=== PATIENT | male | born 1960 | race Caucasian/White ===

== ENCOUNTER 2020-12-25 10:08 | Emergency (ER) | payer SELFPAY ==
[2020-12-25 10:34] LABS: Absolute Lymphocytes (CBC) 1.8 K/uL (0.7-4.9); Basophils % 0.5 % (0-1.3); Hematocrit 46.9 % (39.6-49.0); Lymphocytes % 30.6 % (15.3-44.8); MPV 7.6 fL (7.6-11.3); RBC Red Blood Cell Count 5.23 M/uL (4.33-5.43)
--- NOTE | 2020-12-25 10:39 | RAD REPORT ---
EXAM DESCRIPTION: CT - Ct Stroke Brain Wo Cont - 12/25/2020 10:27 am CLINICAL HISTORY: MENTAL STATUS CHANGE COMPARISON: <Comparisons> TECHNIQUE: Axial 5 millimeter thick images of the head were obtained without IV contrast. All CT scans are performed using dose optimization technique as appropriate and may include automated exposure control or mA/KV adjustment according to patient size. FINDINGS: No intracranial hemorrhage, mass, or cerebral edema. No acute infarction identifiable. No extra-axial fluid collections. Miller matter-white matter differentiation is preserved. Mastoid air cells are clear. No hernia Findings telephoned to Giovany in emergency department 10:35 a.m.. IMPRESSION: No CT evidence of acute intracranial process.
[2020-12-25 10:40] LABS: Protime INR 1.09
[2020-12-25 10:53] LABS: ALT/SGPT 29 U/L (12-78); AST/SGOT 24 U/L (15-37); Albumin 4.1 g/dL (3.4-5.0); Alkaline Phosphatase 63 U/L (45-117); BUN Blood Urea Nitrogen 19 mg/dL (7-18); Bicarbonate 25 mmol/L (21-32); Bilirubin Direct 0.1 mg/dL (0-0.2); Bilirubin Total 0.5 mg/dL (0.2-1.0); Glucose Level 140 mg/dL (74-106); Magnesium 2.3 mg/dL (1.8-2.4); NT PRO-BNP 92 pg/mL (<125); Potassium 3.9 mmol/L (3.5-5.1); Protein, Total 7.7 g/dL (6.4-8.2); Sodium Level 138 mmol/L (136-145); Troponin (Emerg Dept Use Only) < 0.02 ng/mL (0.0-0.045)
--- NOTE | 2020-12-25 11:20 | RAD REPORT ---
EXAM DESCRIPTION: RAD - Chest Single View - 12/25/2020 11:04 am CLINICAL HISTORY: COUGH COMPARISON: None TECHNIQUE: AP portable chest image was obtained 12/25/2020 11:04 am . FINDINGS: Lungs are clear. Heart and vasculature are normal. No measurable pleural effusion and no p neumothorax. No acute bony abnormality seen. No acute aortic findings suspected. IMPRESSION: No acute cardiopulmonary process.
--- NOTE | 2020-12-25 11:21 | ER ---
Nurse's Notes [facility] Name: Onel Escalera Age: 60 yrs Sex: Male : 1960 Arrival Date: 12/25/2020 Time: 10:13 Bed 27 Private MD: Diagnosis: Altered mental status, unspecified;Other seizures-history of;Acute kidney failure, unspecified-volume depletion Presentation: 12/25 10:12 Chief complaint: EMS states: Patient's coworkers reported that he was at work when he aj1 stopped suddenly and appeared dazed. He almost passed out, and started to fall but a coworker caught him and he never lost consciousness. After that he was acting confused so they called EMS. Patient is oriented x1, does not know where he is or what happened. does not remember when questions are answered and asks the same questions repeatedly. Code stroke called. 10:12 Coronavirus screen: Client denies travel out of the [place] in the last 14 days. Ebola aj1 Screen: Patient denies travel to an Ebola-affected area in the 21 days before illness onset. Initial Sepsis Screen: Does the patient meet any 2 criteria? No. Patient's initial sepsis screen is negative. Does the patient have a suspected source of infection? No. Patient's initial sepsis screen is negative. Risk Assessment: Do you want to hurt yourself or someone else? Patient reports no desire to harm self or others. Onset of symptoms was December 25, 2020. 10:12 Method Of Arrival: EMS: [facility] aj1 10:12 Acuity: LUZ ELENA 2 aj1 Triage Assessment: 10:12 General: Appears in no apparent distress. comfortable, Behavior is calm, cooperative, aj1 inappropriate for age. Pain: Denies pain. Neuro: Level of Consciousness is awake, alert, obeys commands, Oriented to person, Recreation Supervisor are equal bilaterally Moves all extremities. Full function Gait is steady, Speech is normal, Facial symmetry appears normal, Pupils are PERRLA. Historical: - Allergies: 11:49 No Known Allergies; aj1 - Home Meds: 11:49 None [Active]; aj1 - PMHx: 11:49 Seizure; Hypoglycemia; aj1 - PSHx: 11:08 Unable to Obtain; aj1 - Immunization history:: Adult Immunizations unknown. - Social history:: Smoking status: unknown. - Family history:: not pertinent. Screenin:15 Abuse screen: Denies threats or abuse. Denies injuries from another. Nutritional aj1 screening: No deficits noted. Tuberculosis screening: No symptoms or risk factors identified. 16:53 Fall Risk No fall in past 12 months (0 pts). Secondary diagnosis (15 points) confused. aj1 IV access (20 points). Ambulatory Aid- None/Bed Rest/Nurse Assist (0 pts). Gait- Normal/Bed Rest/Wheelchair (0 pts) Mental Status- Overestimates/Forgets Limitations (15 pts.). Total Heaton Fall Scale indicates High Risk Score (45 or more points). Placed Close to Nursing Station Frequent Obs/Assessments Occuring Family Present and informed to notify staff if the need to leave the bedside. Assessment: 10:15 General: Appears in no apparent distress. comfortable, Behavior is calm, cooperative, aj1 appropriate for age. Pain: Denies pain. Neuro: Level of Consciousness is awake, alert, obeys commands, Oriented to person, Recreation Supervisor are equal bilaterally Moves all extremities. Full function Gait is steady, Speech is normal, Facial symmetry appears normal, Pupils are PERRLA. Cardiovascular: Heart tones S1 S2 present Patient's skin is warm and dry. Rhythm is sinus rhythm. Respiratory: Airway is patent Respiratory effort is even, unlabored, Respiratory pattern is regular, symmetrical, Breath sounds are clear bilaterally. GI: No signs and/or symptoms were reported involving the gastrointestinal system. : No signs and/or symptoms were reported regarding the genitourinary system. EENT: No signs and/or symptoms were reported regarding the EENT system. Derm: No signs and/or symptoms reported regarding the dermatologic system. Skin is pink, warm \T\ dry. normal. Musculoskeletal: No signs and/or symptoms reported regarding the musculoskeletal system. Circulation, motion, and sensation intact. 11:15 Reassessment: Patient appears in no apparent distress at this time. No changes from aj1 previously documented assessment. Patient and/or family updated on plan of care and expected duration. Pain level reassessed. 11:37 Reassessment: Awaiting Keppra and Folic Acid from pharmacy at this time. . aa5 12:15 Reassessment: Patient and/or family updated on plan of care and expected duration. Pain aj1 level reassessed. General: Appears in no apparent distress. comfortable, Behavior is calm, cooperative, appropriate for age. Pain: Denies pain. Neuro: Level of Consciousness is awake, alert, obeys commands, Oriented to person, Speech is normal, Facial symmetry appears normal. Cardiovascular: Patient's skin is warm and dry. Rhythm is sinus rhythm. Respiratory: Airway is patent Respiratory effort is even, unlabored, Respiratory pattern is regular, symmetrical. Derm: Skin is pink, warm \T\ dry. normal. Musculoskeletal: No signs and/or symptoms reported regarding the musculoskeletal system. Circulation, motion, and sensation intact. 13:14 Reassessment: Patient appears in no apparent distress at this time. No changes from aj1 previously documented assessment. Patient and/or family updated on plan of care and expected duration. Pain level reassessed. 14:29 Reassessment: Patient and/or family updated on plan of care and expected duration. Pain aj1 level reassessed. General: Appears in no apparent distress. comfortable. 14:30 Pain: Denies pain. Neuro: Level of Consciousness is awake, alert, obeys commands, aj1 Oriented to person, Speech is normal, Facial symmetry appears normal. Cardiovascular: Patient's skin is warm and dry. Rhythm is sinus rhythm. Respiratory: Airway is patent Respiratory effort is even, unlabored, Respiratory pattern is regular, symmetrical. Respiratory: Airway is patent Respiratory effort is even, unlabored, Respiratory pattern is regular, symmetrical. Derm: Skin is pink, warm \T\ dry. normal. Musculoskeletal: Circulation, motion, and sensation intact. 14:40 Reassessment: Report given to ETHAN Ames at [facility]. aj1 15:38 Reassessment: Patient appears in no apparent distress at this time. No changes from aj1 previously documented assessment. Patient and/or family updated on plan of care and expected duration. Pain level reassessed. 16:40 Reassessment: Patient appears in no apparent distress at this time. No changes from aj1 previously documented assessment. Patient and/or family updated on plan of care and expected duration. Pain level reassessed. Vital Signs: 10:12 BP 132 / 78; Pulse 82; Resp 18; Temp 97.8; Pulse Ox 99% ; Pain 0/10; aj1 11:15 BP 118 / 81; Pulse 65; Resp 18; Pulse Ox 99% on R/A; aj1 12:15 BP 133 / 83; Pulse 63; Resp 18; Pulse Ox 100% on R/A; aj1 13:14 BP 130 / 89; Pulse 71; Resp 18; Pulse Ox 97% on R/A; aj1 14:31 BP 121 / 82; Pulse 73; Resp 18; Pulse Ox 100% on R/A; aj1 15:39 BP 118 / 87; Pulse 60; Resp 16; Pulse Ox 98% on R/A; aj1 16:53 BP 122 / 88; Pulse 72; Resp 18; Pulse Ox 97% ; aj1 NIH Stroke Scale Scores: 11:08 NIHSS Score: 0 [facility] ED Course: 10:12 Arm band placed on. aj1 10:13 Patient arrived in ED. eb 10:13 Keagan Rothman MD is Attending Physician. melly 10:15 No provider procedures requiring assistance completed. aj1 10:15 Patient has correct armband on for positive identification. Bed in low position. Call aj1 light in reach. Side rails up X2. monitor tech on. Pulse ox on. NIBP on. 10:18 Initial lab(s) drawn, by me, sent to lab. Inserted saline lock: 18 gauge in right aa5 antecubital area, using aseptic technique. Blood collected. 10:27 CT Stroke Brain w/o Contrast In Process Unspecified. EDMS 11:02 Radha Limon, RN is Primary Nurse. aj1 11:04 XRAY Chest (1 view) In Process Unspecified. EDMS 11:08 Triage completed. aj1 11:19 Marck French DO is Hospitalizing Provider. melly 12:[address] Rothman with Nisha Montiel from the [facility] eb Center. 12:32 CT Neck Angio In Process Unspecified. EDMS 12:32 CT Head Angio In Process Unspecified. EDMS 12:[address] Franco the neurologist decontaminator for [facility] with Dr. Rothman for eb patient transfer consultation. 12:[address] Carey the hospitalist decontaminator for [facility] with Dr. Rothman for eb patient transfer consultation. 13:29 administrative approval given by Nisha Montiel/ patient has been accepted to [facility] rm 2209/ Dr. Daryl Carey has accepted the patient in transfer/ Report to be called to [phone]. 16:53 Patient transferred, IV remains in place. aj1 Administered Medications: 11:36 Drug: NS 0.9% 1000 ml Route: IV; Rate: 1 bolus; Site: right antecubital; aa5 11:36 Drug: Aspirin Chewable Tablet 324 mg Route: PO; aa5 12:45 Drug: Keppra (levETIRAcetam) 1000 mg Route: IV; Rate: per protocol; Site: right aj1 antecubital; 12:45 Drug: Ativan (LORazepam) 1 mg Route: IVP; Site: right antecubital; aj1 Outcome: 11:21 Decision to Hospitalize by Provider. melly 12:26 ER care complete, transfer ordered by MD. melly 16:54 Transferred by ground EMS aj1 16:54 Condition: stable 16:54 Discharge instructions given to patient, family, Instructed on the need for transfer, Demonstrated understanding of instructions. 16:54 Patient left the ED. aj1 NIH Stroke Scale - NIH Stroke Score Date: 12/25/2020 Time: 11:08 Total Score = 0 1a. Level of Consciousness (LOC) - 0(Alert) 1b. Level of Consciousness (LOC) (Month \T\ Age) - 0(Both) 1c. LOC Commands (Open \T\ Closes Eyes/Customer Project Manager) - 0(Both) 2. Best Gaze (Lateral Gaze Paresis) - 0(Normal) 3. Visual Field Loss - 0(No visual loss) 4. Facial Palsy - 0(Normal) 5a. Left Arm: Motor (10-second hold) - 0(No drift) 5b. Right Arm: Motor (10-second hold) - 0(No drift) 6a. Left Leg: Motor (5-second hold - always test supine) - 0(No drift) 6b. Right Leg: Motor (5-second hold - always test supine) - 0(No drift) 7. Limb Ataxia (finger/nose \T\ heel/sandoval - test with eyes open) - 0(Absent) 8. Sensory Loss (pinprick arms/legs/face) - 0(Normal) 9. Best Language: Aphasia (description/naming/reading) - 0(No aphasia) 10. Dysarthria (speech clarity - read or repeat words) - 0(Normal) 11. Extinction and Inattention (visual/tactile/auditory/spatial/personal) - 0(No abnormality) Initials: melly Signatures: Dispatcher [employer] EDRadha Canales RN RN aj1 Keagan Rothman MD MD cha Calderon, Audri, RN RN aa5 Nisha Mejia Corrections: (The following items were deleted from the chart) 11:49 11:08 Allergies: Unable to obtain; aj1 aj1 11:49 11:08 Home Meds: Unable to obtain; aj1 aj1 11:49 11:08 PMHx: Unable to Obtain; aj1 aj1 12:57 12:52 connected the hospitalist decontaminator for [facility] with Dr. Stephan gonzalez for patient transfer consultation, eb 13:13 13:12 Reassessment: Patient and/or family updated on plan of care and expected aj1 duration. Pain level reassessed. aj1 13:13 13:12 General: Appears in no apparent distress. comfortable, Behavior is calm, aj1 cooperative, appropriate for age, aj1 13:13 13:12 Pain: Denies pain. aj1 aj1 13:13 13:12 Neuro: Level of Consciousness is awake, alert, obeys commands, Oriented aj1 to person, Speech is normal, Facial symmetry appears normal, aj1 13:13 13:12 Cardiovascular: Patient's skin is warm and dry. Rhythm is sinus rhythm aj1aj1 13:13 13:12 Respiratory: Airway is patent Respiratory effort is even, unlabored, aj1 Respiratory pattern is regular, symmetrical, aj1 13:13 13:12 Derm: Skin is pink, warm \T\ dry. normal, aj1 aj1 13:13 13:12 Musculoskeletal: No signs and/or symptoms reported regarding the aj1 musculoskeletal system. Circulation, motion, and sensation intact. aj1 14:30 11:15 Reassessment: Patient appears in no apparent distress at this time. No aj1 changes from previously documented assessment. Patient and/or family updated on plan of care and expected duration. Pain level reassessed. Patient is alert, oriented x 3, equal unlabored respirations, skin warm/dry/pink. aj1 14:30 13:14 Reassessment: Patient appears in no apparent distress at this time. No aj1 changes from previously documented assessment. Patient and/or family updated on plan of care and expected duration. Pain level reassessed. Patient is alert, oriented x 3, equal unlabored respirations, skin warm/dry/pink. aj1 14:31 14:29 Reassessment: Patient and/or family updated on plan of care and expected aj1 duration. Pain level reassessed. aj1
--- NOTE | 2020-12-25 11:21 | EDPHYS ---
Physician Documentation [facility] Name: Onel Escalera Age: 60 yrs Sex: Male : 1960 Arrival Date: 12/25/2020 Time: 10:13 Bed 27 Private MD: ED Physician Keagan Rothman HPI: 12/25 11:04 This 60 yrs old Male presents to ER via Unassigned with complaints of Altered melly Mental Status, Near Syncope. 11:04 The patient presents with confusion. Onset: The symptoms/episode began/occurred just melly prior to arrival. Possible causes: CVA or TIA, drug use, alcohol, head injury, low blood sugar, seizure. Associated signs and symptoms: The patient has no apparent associated signs or symptoms. Current symptoms: In the emergency department the patient's symptoms have improved, moderately. Patient's baseline: Neuro: alert and fully oriented. The patient has not experienced similar symptoms in the past. Historical: - Allergies: 11:49 No Known Allergies; aj1 - Home Meds: 11:49 None [Active]; aj1 - PMHx: 11:49 Seizure; Hypoglycemia; aj1 - PSHx: 11:08 Unable to Obtain; aj1 - Immunization history:: Adult Immunizations unknown. - Social history:: Smoking status: unknown. - Family history:: not pertinent. ROS: 11:08 Constitutional: Negative for fever, chills, and weight loss, Eyes: Negative for injury, melly pain, redness, and discharge, ENT: Negative for injury, pain, and discharge, Neck: Negative for injury, pain, and swelling, Cardiovascular: Negative for chest pain, palpitations, and edema, Respiratory: Negative for shortness of breath, cough, wheezing, and pleuritic chest pain, Abdomen/GI: Negative for abdominal pain, nausea, vomiting, diarrhea, and constipation, Back: Negative for injury and pain, : Negative for injury, bleeding, discharge, and swelling, MS/Extremity: Negative for injury and deformity, Skin: Negative for injury, rash, and discoloration, Psych: Negative for depression, anxiety, suicide ideation, homicidal ideation, and hallucinations, Allergy/Immunology: Negative for hives, rash, and allergies, Endocrine: Negative for neck swelling, polydipsia, polyuria, polyphagia, and marked weight changes, Hematologic/Lymphatic: Negative for swollen nodes, abnormal bleeding, and unusual bruising. 11:08 Neuro: Positive for altered mental status. Exam: 11:08 Constitutional: This is a well developed, well nourished patient who is awake, alert, melly and in no acute distress. Head/Face: Normocephalic, atraumatic. Eyes: Pupils equal round and reactive to light, extra-ocular motions intact. Lids and lashes normal. Conjunctiva and sclera are non-icteric and not injected. Cornea within normal limits. Periorbital areas with no swelling, redness, or edema. ENT: Nares patent. No nasal discharge, no septal abnormalities noted. Tympanic membranes are normal and external auditory canals are clear. Oropharynx with no redness, swelling, or masses, exudates, or evidence of obstruction, uvula midline. Mucous membranes moist. Neck: Trachea midline, no thyromegaly or masses palpated, and no cervical lymphadenopathy. Supple, full range of motion without nuchal rigidity, or vertebral point tenderness. No Meningismus. Chest/axilla: Normal chest wall appearance and motion. Nontender with no deformity. No lesions are appreciated. Cardiovascular: Regular rate and rhythm with a normal S1 and S2. No gallops, murmurs, or rubs. Normal PMI, no JVD. No pulse deficits. Respiratory: Lungs have equal breath sounds bilaterally, clear to auscultation and percussion. No rales, rhonchi or wheezes noted. No increased work of breathing, no retractions or nasal flaring. Abdomen/GI: Soft, non-tender, with normal bowel sounds. No distension or tympany. No guarding or rebound. No evidence of tenderness throughout. Back: No spinal tenderness. No costovertebral tenderness. Full range of motion. Skin: Warm, dry with normal turgor. Normal color with no rashes, no lesions, and no evidence of cellulitis. MS/ Extremity: Pulses equal, no cyanosis. Neurovascular intact. Full, normal range of motion. Psych: Awake, alert, with orientation to person, place and time. Behavior, mood, and affect are within normal limits. 11:08 Neuro: Orientation: to person, Not oriented to place, time, situation, Mentation: confused, Memory: immediate memory is impaired, remote memory is impaired, recent memory is impaired, Cranial nerves: grossly normal, is grossly normal based on the patient's age, no acute changes, Cerebellar function: is grossly normal, is grossly normal based on the patient's age, no acute changes, Motor: is normal, is grossly normal based on the patient's age, no acute changes, moves all fours, strength is normal, Sensation: is normal, no obvious gross deficits, appropriate no acute changes, Gait: is steady, appropriate for age, Deep tendon reflexes are 2+ (normal) in the bilateral brachioradialis, bicep, tricep and patellar and Achilles tendons, Babinski testing is normal, seizure activity, is not displayed by the patient. 11:12 ECG was reviewed by the Attending Physician. melly Vital Signs: 10:12 BP 132 / 78; Pulse 82; Resp 18; Temp 97.8; Pulse Ox 99% ; Pain 0/10; aj1 11:15 BP 118 / 81; Pulse 65; Resp 18; Pulse Ox 99% on R/A; aj1 12:15 BP 133 / 83; Pulse 63; Resp 18; Pulse Ox 100% on R/A; aj1 13:14 BP 130 / 89; Pulse 71; Resp 18; Pulse Ox 97% on R/A; aj1 14:31 BP 121 / 82; Pulse 73; Resp 18; Pulse Ox 100% on R/A; aj1 15:39 BP 118 / 87; Pulse 60; Resp 16; Pulse Ox 98% on R/A; aj1 16:53 BP 122 / 88; Pulse 72; Resp 18; Pulse Ox 97% ; aj1 NIH Stroke Scale Scores: 11:08 NIHSS Score: 0 melly MDM: 10:13 Patient medically screened. melly 11:11 Differential Diagnosis: CVA, electrolyte abnormality, alcohol intoxication, melly hypoglycemia, intracranial bleed, seizure, volume depletion. Data reviewed: vital signs, nurses notes, EMS record, lab test result(s), EKG, radiologic studies, CT scan, plain films. Data interpreted: monitoring analyst: rate is 82 beats/min, rhythm is regular, Pulse oximetry: on room air is 99 %. Test interpretation: by ED physician or midlevel provider: ECG, plain radiologic studies. Counseling: I had a detailed discussion with the patient and/or guardian regarding: the historical points, exam findings, and any diagnostic results supporting the discharge/admit diagnosis, lab results, radiology results, the need for further work-up and treatment in the hospital. 12/25 10:15 Order name: Basic Metabolic Panel [facility] 12/25 10:15 Order name: CBC with Diff [facility] 12/25 10:15 Order name: LFT's [facility] 12/25 10:15 Order name: Magnesium [facility] 12/25 10:15 Order name: NT PRO-BNP; Complete Time: 12:19 [facility] 12/25 10:15 Order name: PT-INR; Complete Time: 12:19 [facility] 12/25 10:15 Order name: Troponin (emerg Dept Use Only); Complete Time: 12:19 [facility] 12/25 10:15 Order name: Basic Metabolic Panel; Complete Time: 12:19 [facility] 12/25 10:15 Order name: CBC with Automated Diff; Complete Time: 10:58 [facility] 12/25 10:15 Order name: Liver (Hepatic) Function; Complete Time: 12:19 [facility]DE 12/25 10:15 Order name: Magnesium; Complete Time: 12:19 [facility]DE 12/25 10:27 Order name: Glucose, Ancillary Testing; Complete Time: 10:58 [facility] 12/25 10:15 Order name: XRAY Chest (1 view); Complete Time: 12:19 [facility] 12/25 10:15 Order name: CT Stroke Brain w/o Contrast; Complete Time: 10:58 [facility] 12/25 11:15 Order name: ETOH Level; Complete Time: 12:19 [facility] 12/25 11:15 Order name: Salicylate; Complete Time: 12:50 [facility] 12/25 11:15 Order name: Urine Drug Screen; Complete Time: 12:19 [facility] 12/25 11:37 Order name: Acetaminophen Level; Complete Time: 12:19 [facility] 12/25 11:37 Order name: PTT, Activated Partial Thromb; Complete Time: 12:19 EDDE 12/25 12:01 Order name: CT Neck Angio [facility] 12/25 12:01 Order name: CT Head Angio [facility] 12/25 12:41 Order name: Urine Dipstick-Ancillary; Complete Time: 12:50 EDDE 12/25 14:04 Order name: SARS-COV-2 RT PCR [facility] 12/25 10:15 Order name: EKG; Complete Time: 10:16 [facility] 12/25 10:15 Order name: Cardiac monitoring; Complete Time: 11:02 [facility] 12/25 10:15 Order name: EKG - Nurse/Tech; Complete Time: 11:02 [facility] 12/25 10:15 Order name: IV Saline Lock; Complete Time: 11:02 [facility] 12/25 10:15 Order name: Labs collected and sent; Complete Time: 11:02 [facility] 12/25 10:15 Order name: O2 Per Protocol; Complete Time: 11:02 [facility] 12/25 10:15 Order name: O2 Sat Monitoring; Complete Time: 11:02 [facility] 12/25 10:15 Order name: Urine Dipstick-Ancillary (obtain specimen); Complete Time: 12:36 [facility] 12/25 11:15 Order name: Seizure Precautions; Complete Time: 11:36 [facility] EC:12 Rate is 65 beats/min. Rhythm is regular. QRS Hazel is Normal. WI interval is normal. QRS melly interval is normal. QT interval is normal. No Q waves. T waves are Normal. No ST changes noted. Clinical impression: Normal ECG and No evidence of ischemia. Interpreted by me. Reviewed by me. Administered Medications: 11:36 Drug: NS 0.9% 1000 ml Route: IV; Rate: 1 bolus; Site: right antecubital; aa5 11:36 Drug: Aspirin Chewable Tablet 324 mg Route: PO; aa5 12:45 Drug: Keppra (levETIRAcetam) 1000 mg Route: IV; Rate: per protocol; Site: right aj1 antecubital; 12:45 Drug: Ativan (LORazepam) 1 mg Route: IVP; Site: right antecubital; aj1 Disposition Summary: 12/25/20 12:26 Transfer Ordered Transfer Location: [facility] melly Reason: Higher level of care melly Condition: Stable(12/25/20 12:26) melly Problem: new(12/25/20 12:26) melly Symptoms: have improved(12/25/20 12:26) melly Accepting Physician: to [facility], neuro(12/25/20 16:54) aj1 Diagnosis - Altered mental status, unspecified(12/25/20 12:26) melly - Other seizures - history of melly - Acute kidney failure, unspecified - volume depletion melly Forms: - Medication Reconciliation Form melly - SBAR form melly NIH Stroke Scale - NIH Stroke Score Date: 12/25/2020 Time: 11:08 Total Score = 0 1a. Level of Consciousness (LOC) - 0(Alert) 1b. Level of Consciousness (LOC) (Month \T\ Age) - 0(Both) 1c. LOC Commands (Open \T\ Closes Eyes/Hone Operator) - 0(Both) 2. Best Gaze (Lateral Gaze Paresis) - 0(Normal) 3. Visual Field Loss - 0(No visual loss) 4. Facial Palsy - 0(Normal) 5a. Left Arm: Motor (10-second hold) - 0(No drift) 5b. Right Arm: Motor (10-second hold) - 0(No drift) 6a. Left Leg: Motor (5-second hold - always test supine) - 0(No drift) 6b. Right Leg: Motor (5-second hold - always test supine) - 0(No drift) 7. Limb Ataxia (finger/nose \T\ heel/sandoval - test with eyes open) - 0(Absent) 8. Sensory Loss (pinprick arms/legs/face) - 0(Normal) 9. Best Language: Aphasia (description/naming/reading) - 0(No aphasia) 10. Dysarthria (speech clarity - read or repeat words) - 0(Normal) 11. Extinction and Inattention (visual/tactile/auditory/spatial/personal) - 0(No abnormality) Initials: melly Signatures: Dispatcher [employer] EDRadha Canales RN RN aj1 Keagan Rothman MD MD cha Calderon, Audri RN RN aa5 Corrections: (The following items were deleted from the chart) 11:25 11:15 Suicide Screening ([place]) ordered. [facility] aa5 11:35 11:15 ACETAMINOPHEN+C.LAB.BRZ ordered. EDMS EDMS 11:37 11:15 PTT, ACTIVATED+COAG.LAB.BRZ ordered. EDMS EDMS 11:49 11:08 Allergies: Unable to obtain; aj1 aj 11:49 11:08 Home Meds: Unable to obtain; aj1 aj1 11:49 11:08 PMHx: Unable to Obtain; aj1 aj1 12:21 11:21 Observation melly melly 12:21 11:21 PrezaMarck jeffrey melly melly 12:21 11:21 Telemetry/MedSurg (observation) melly melly 12:21 11:21 Fair melly melly 12:21 11:21 new melly melly 12:21 11:21 have improved melly melly 12:21 11:21 Standard melly melly 12:21 11:21 melly melly 12:21 11:21 Altered mental status, unspecified melly melly 12:21 11:21 Dehydration melly melly 12:21 11:21 Syncope Near melly melly 12:21 11:21 Epileptic seizures related to external causes - History of melly melly 14:05 10:16 CORONAVIRUS+MR.LAB.BRZ ordered. EDMS EDMS 16:54 12:26 to [facility], neuro melly aj1
[2020-12-25] MEDS ORDERED: levETIRAcetam 1,000 MG in NA CHLORIDE 0.9% 100 ML IV ONE (11:30)
[2020-12-25] MEDS ORDERED: ASPIRIN 81 MG CHEWABLE TABLET ONE (11:53)
[2020-12-25] MEDS ORDERED: NA CHLORIDE 0.9% 1,000 ML ONE (11:54)
[2020-12-25 11:58] LABS: Barbiturates NEGATIVE (NEGATIVE); Benzodiazepines NEGATIVE (NEGATIVE); Cocaine NEGATIVE (NEGATIVE); METHAMPHETAM NEGATIVE (NEGATIVE); Methadone NEGATIVE (NEGATIVE); Opiates NEGATIVE (NEGATIVE); Phencyclidine NEGATIVE (NEGATIVE); THC Cannibis NEGATIVE (NEGATIVE)
--- NOTE | 2020-12-25 12:40 | P.CNS ---
Date of Consult: 12/25/20 Reason for Consult: ER evaluation Requesting Physician: Keagan Rothman Primary Care Provider: none Chief Complaint: AMS, Amnesia History of Present Illness: 60-year-old male with history of seizure disorder in the distant past not taking any medication for quite some time. Patient was brought in by EMS. He was apparently at work. Coworkers noted that he was dazed and confused. There was an episode where he started to fall. Coworkers were able to help him down. Patient then became very confused. He started to have some amnesia. The patient was seen in the ER. In the ER patient was evaluated. No evidence of weakness, slurring of speech. Patient had some amnesia. Vital signs stable. Head CT unremarkable. Chest x- ray unremarkable. White count 5.9, hemoglobin 15. Sodium 138, potassium 3.9. Being of 19, creatinine 1.5 with a GFR 46. Glucose 140. Troponin negative. I was asked to evaluate patient for possible admission. I was able to speak to the daughter who was present. Daughter reports patient with history of seizures. He had been taking medication in the distant past. He stopped taking medication 10 years ago when he was taken off medication. Patient had a history of grand mal seizures. Home medications list reviewed: Yes - Past Medical/Surgical History Diabetic: No -: Seizure disorder Past Surgical History: Unable to obtain Psychosocial/ Personal History: Patient relocated to be near her daughter. He is originally from [place]. 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 - Social History Smoking Status: Never smoker Alcohol use: No CD- Drugs: No Caffeine use: No Place of Residence: Home Review of Systems is unable to be obtained Physical Examination Laboratory Data (last 24 hrs) 12/25/20 11:15: APTT Cancelled 12/25/20 10:18: PT 12.5, INR 1.09, APTT 27.6 12/25/20 10:18: WBC 5.90, Hgb 15.4, Hct 46.9, Plt Count 225 12/25/20 10:18: Sodium 138, Potassium 3.9, BUN 19 H, Creatinine 1.53 H, Glucose 140 H, Magnesium 2.3, Total Bilirubin 0.5, AST 24, ALT 29, Alkaline Phosphatase 63 Physician Review Additional Text: COVID: Negative CT Head: No acute abnormality CXR: Unremarkable Physical Exam: GENERAL: Patient oriented x1. Patient with amnesia. Repetitive discussion on where patient is at is noted. No focal deficits. VITAL SIGNS: Reviewed HEENT: Head and neck unremarkable. No trauma. NECK: Supple. No carotid bruits. No lymphadenopathy or thyromegaly. LUNGS: Clear to auscultation. No crackles or wheezes are heard. HEART: Regular rate and rhythm, no appreciable gallops, rubs, murmurs or extra heart sounds ABDOMEN: Soft, nontender, and nondistended. Positive bowel sounds. No hepatosplenomegaly was noted. EXTREMITIES: Without any cyanosis, clubbing, rash, lesions or peripheral edema. NEUROLOGIC: Oriented x1. Increase anxiety and agitation. Positive for repetitive amnesia SKIN: Normal color, turgor and temperature. No ulcerations or rashes noted. 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 Case discussed at length with neurology. Neurology suspects this may be related to his seizure disorder. Patient with prior history of seizures. He stopped taking medication 10 years ago as this was weaned off. Patient still with amnesia and altered mental status changes. Increased agitation noted. Patient may have status partialis. Ideally patient needs to be in ICU with MRI and EEG monitoring which we did not have available over the weekend. CT angiogram to be obtained to further evaluate. Neurology recommends patient to be transferred to high-level center to further evaluate and treat. This was discussed in detail with the daughter who is a nurse practitioner. She prefers the patient to be transferred to high- level center to further evaluate. Case discussed in detail with ER physician who agrees with plan of care. ER will transfer patient to [facility] for high- level care center including continuous EEG monitoring, ICU neuro evaluation and treatment, and MRI. Code Status: Full Code Advanced Care Planning-30 minutes: Plan of care discussed with daughter in detail. Time Spent Managing Pts care (In Minutes): 55
[2020-12-25 12:41] LABS: Urine Blood Negative (Negative); Urine Glucose Negative (Negative); Urine Protein Negative (Negative); Urine Specific Gravity 1.025 (1.005-1.030)
--- NOTE | 2020-12-25 13:02 | RAD REPORT ---
EXAM DESCRIPTION: CT - Neck Angio - 12/25/2020 12:33 pm CLINICAL HISTORY: ams, stroke-like symptoms TECHNIQUE: During dynamic enhancement using nonionic IV contrast, axial 2 mm thick images of the nec k were obtained. Sagittal and axial reconstruction images were generated using MIP technique and revi ewed. All CT scans are performed using dose optimization technique as appropriate and may include automated exposure control or mA/KV adjustment according to patient size. COMPARISON: CT head same date FINDINGS: No aneurysm or vascular malformation identified. No carotid or vertebral dissection. No aortic arch or great vessel origin abnormality seen. Vertebral artery origins unremarkable as well . No stenosis, vasculitis or other significant carotid artery finding. Tortuosity of the proximal car otid vasculature seen. No focal abnormality of either vertebral artery. Left vertebral artery termina leobardo at the posteroinferior cerebellar artery as a normal variant. Basilar artery is normal. IMPRESSION: Negative CT angio neck examination for acute or significant finding.
[2020-12-25] MEDS ORDERED: LORazepam 2 MG/ML VIAL ONE (13:07)
--- NOTE | 2020-12-25 13:08 | RAD REPORT ---
EXAM DESCRIPTION: CT - Head angio - 12/25/2020 12:33 pm CLINICAL HISTORY: ams, stroke-like symptoms TECHNIQUE: During dynamic enhancement using nonionic IV contrast, axial 1 millimeter thick images of the head were obtained. Sagittal and axial reconstruction images were generated using MIP technique and reviewed. All CT scans are performed using dose optimization technique as appropriate and may include automated exposure control or mA/KV adjustment according to patient size. COMPARISON: CT head same date, CT angio neck same date FINDINGS: No aneurysm or vascular malformation identified. Major venous sinuses are patent. No stenosis, named branch occlusion, vasculitis or other significant vascular finding identifiable. L eft posterior communicating artery supplies all or most of the left POCKET MACHINE OPERATOR distribution. IMPRESSION: Negative CT angio head examination for acute or significant finding.
[2020-12-25 17:01] VITALS: TEMP 97.8
[2020-12-25 17:08] VITALS: BP 122/88; O2SAT 97
[2020-12-29] MEDS ORDERED: LORazepam 2 MG/ML VIAL ONE (04:00)
== END 2020-12-25 16:54 | disposition short-term general hospital (02) ==
LOC: ER 10:08
DX: E86.9 Volume depletion, unspecified (principal); N17.9 Acute kidney failure, unspecified; G40.89 Other seizures; Z20.822 Contact with and (suspected) exposure to COVID-19
CPT/HCPCS: 36415; 70450; 70496; 70498; 71045; 80048; 80076; 80307; 80320; 80329; 81003; 82947; 83735; 83880; 84484; 85025; 85610; 85730; 96374; 96375; 99285; J1953; J7030; Q9967; U0003